=== PATIENT | female | born 1980 | race African-American/Black ===

== ENCOUNTER 2017-03-06 09:13 | Observation (INO) ==
[2017-03-06] MEDS ORDERED: ASPIRIN 325 MG TABLET PO STA (09:55)
[2017-03-06] MEDS ORDERED: ONDANSETRON 4 MG/2 ML VIAL IV PRN ×2 (09:55→13:59)
[2017-03-06] MEDS ORDERED: MORPHINE 2 MG/1 ML SYRINGE IV PRN ×2 (09:55→14:08)
[2017-03-06] MEDS ORDERED: NITROGLYCERIN 2% OINT 1 INCH/GM PACK TOP STA (09:55)
[2017-03-06] MEDS ORDERED: ENOXAPARIN 100 MG/ML SYRINGE SUBCUT STA (09:55)
[2017-03-06 10:16] LABS: Basophils % 1.2 % (0.0-0.8); Eosinophils # 0.2 10*3/uL (0.0-0.87); Eosinophils % 6.1 % (0.00-10.9); Hematocrit 37.5 VOL% (35.7-47.0); Hemoglobin 12.2 GM/DL (12.0-16.0); Immature Granulocytes % 0.3 %; Immature Granulocytes Absolute 0.01 #; Lymphocytes % 29.7 % (21.3-54.2); Mean Corpuscular HGB Conc 32.5 GM/DL (32-36); Mean Corpuscular Hemoglobin 26 PG (27-34); Mean Corpuscular Volume 78.9 FL (87-102); Mean Platelet Volume 10.1 FL (9.6-12.0); Monocytes # 0.3 10*3/uL (0.11-0.8); Neutrophils # 1.8 10*3/uL (1.4-7.4); Neutrophils % 54.7 % (38.7-73.9); Platelet Count 316 T/CUMM (130-400); Red Blood Count 4.75 MC/CUMM (3.8-5.5); Red Cell Distribution Width 14.8 % (9.3-17.3); White Blood Count 3.3 T/CUMM (4-12)
[2017-03-06] MEDS ORDERED: ASPIRIN 325 MG TABLET ONE (10:24)
[2017-03-06] MEDS ORDERED: NITROGLYCERIN 2% OINT 1 INCH/GM PACK TOP ONE (10:24)
[2017-03-06] MEDS ORDERED: ENOXAPARIN 80 MG/0.8 ML SYRINGE SUBCUT ONE (10:24)
[2017-03-06 10:26] LABS: PT Patient Result 10.2 SECS; Partial Thromboplastin Time 26.5 SECS (0-40)
[2017-03-06 10:53] LABS: Albumin 3.4 G/DL (3.4-5.0); Bilirubin,Total 0.6 MG/DL (0.2-1.0); Calcium 8.9 MG/DL (8.5-10.1); Magnesium 1.7 MG/DL (1.8-2.4); Osmolality,Calculated 274.5 MOS/KG (273-304); Potassium 3.9 MMOL/L (3.5-5.1); Total Protein 7.2 G/DL (6.4-8.3)
[2017-03-06 11:35] LABS: Apearance,Urine CLOUDY (Clear); Bilirubin,Urine Negative (Negative); Blood, Urine Negative (Negative); Glucose,Urine (UA) Negative (Negative); Ketones,Urine Negative (Negative); Mucus,Urine Occasional /LPF (Occasional); Nitrite,Urine Negative (Negative); Protein,Urine Negative; RBC,Urine 1 /HPF (0-4); Squamous Epithelial Cell,Urine Few /HPF (0-10); Urine Color Yellow (Yellow); Urine Specific Gravity 1.025 (1.001-1.035); WBC,Urine 5 /HPF (0-6)
[2017-03-06 11:39] LABS: Barbiturates Screen,Urine Negative (Negative); Benzodiazepines Screen,Urine Negative (Negative); Cannabinoid Screen,Urine Negative (Negative); Opiate Screen,Urine Negative (Negative); Phencyclidine Screen,Urine Negative (Negative)
[2017-03-06] MEDS ORDERED: ACETAMINOPHEN 325 MG TABLET PO PRN (13:59)
[2017-03-06] MEDS: LEVOFLOXACIN 250 MG TABLET PO SCH (17:54)
[2017-03-06] MEDS: KETOROLAC 30 MG/1 ML VIAL IV SCH (19:40)
[2017-03-06] MEDS: ALBUTEROL/IPRATROPIUM 3 ML NEB RESP TX SCH (20:02)
[2017-03-06] MEDS ORDERED: ENOXAPARIN 40 MG/0.4 ML SYRINGE SUBCUT SCH (21:00)
[2017-03-07] MEDS: KETOROLAC 30 MG/1 ML VIAL IV SCH ×3 (00:11→12:22)
[2017-03-07 03:02] LABS: Basophils % 0.5 % (0.0-0.8); Eosinophils # 0.2 10*3/uL (0.0-0.87); Eosinophils % 4.7 % (0.00-10.9); Hematocrit 35.5 VOL% (35.7-47.0); Immature Granulocytes % 0.3 %; Immature Granulocytes Absolute 0.01 #; Lymphocytes # 1.8 10*3/uL (1.4-4.0); Lymphocytes % 46.1 % (21.3-54.2); Mean Corpuscular Hemoglobin 25 PG (27-34); Mean Corpuscular Volume 80.3 FL (87-102); Mean Platelet Volume 11.2 FL (9.6-12.0); Monocytes # 0.3 10*3/uL (0.11-0.8); Monocytes % 8.9 % (1.7-12.7); Neutrophils # 1.5 10*3/uL (1.4-7.4); Neutrophils % 39.5 % (38.7-73.9); Platelet Count 305 T/CUMM (130-400); Red Blood Count 4.42 MC/CUMM (3.8-5.5); Red Cell Distribution Width 14.9 % (9.3-17.3); White Blood Count 3.8 T/CUMM (4-12)
[2017-03-07 03:55] LABS: Calcium 8.7 MG/DL (8.5-10.1); Magnesium 1.6 MG/DL (1.8-2.4); Osmolality,Calculated 280.4 MOS/KG (273-304); Risk Ratio 2.69; Thyroid Stimulating Hormone 1.79 uIU/ml (0.358-3.74); VLDL CHOLESTEROL 13.2 MG/DL
[2017-03-07] MEDS: ALBUTEROL/IPRATROPIUM 3 ML NEB RESP TX SCH ×3 (04:31→13:15)
[2017-03-07] MEDS ORDERED: PANTOPRAZOLE 40 MG TABLET PO SCH (09:00)
[2017-03-07] MEDS: LEVOFLOXACIN 250 MG TABLET PO SCH (09:15)
[2017-03-07 17:37] VITALS: BP 110/56
== END 2017-03-07 17:00 | disposition home or self-care (01) ==
LOC: N.EDINP 09:13 → N.ED 09:13 → N.TELEN 15:24
PROVIDERS: ADMIT Internal Medicine Infectious Disease; ATTEND Internal Medicine Infectious Disease